=== PATIENT | female | born 2000 | race Caucasian/White ===

== ENCOUNTER 2018-11-17 22:46 | Emergency (ER) | payer OTHER ==
[~2018-11-17] VITALS: Ht 170.2 cm; Wt 95.5 kg
[2018-11-17 22:54] VITALS: BP 128/79; TEMP 97.2
[2018-11-17] MEDS ORDERED: NEXPLANON68 MG ID (22:57)
[2018-11-18] MEDS ORDERED: NORCO 325 MG-51 TAB PO (01:02)
[2018-11-18 01:46] VITALS: PULSE 94
== END 2018-11-18 01:48 | disposition home or self-care (01) ==
LOC: COL.ER 22:46
DX: S93.602A Unspecified sprain of left foot, initial encounter (principal); X50.0XXA Overexertion from strenuous movement or load, initial encounter; Y92.009 Unspecified place in unspecified non-institutional (private) residence as the place of occurrence of the external cause